=== PATIENT | female | born 1985 | race Caucasian/White ===

== ENCOUNTER 2018-12-21 10:23 | Emergency (ER) | payer BC, SELFPAY ==
[2018-12-21 10:27] VITALS: BP 133/72; PULSE 77; RESP 16; TEMP 36.7
[2018-12-21 10:43] LABS: Bilirubin Negative (Negative); Blood Moderate (Negative); Clarity Sl Cloudy (Clear); Glucose Negative (Negative); Ketones Negative (Negative); Leukocyte Esterase Moderate (Negative); Nitrite Negative (Negative); Urobilinogen 0.2 EU/dL (Up TO 0.2)
--- NOTE | 2018-12-21 10:43 | ED.GENADUL_ITS ---
Discharge Plan Disposition Patient Disposition: HOME Condition: Stable Discharge Details Chief Complaint: Urinary Clinical Impression: UTI (urinary tract infection), Third trimester ED Provider: Verena Arevalo Home Meds and New Rx's Prescriptions: Continued PNV cmb#95-ferrous fumarate-FA [] 28 mg iron- 800 mcg Tablet 1 tab PO DAILY RF: 0 Discharge Instructions Instructions: Urinary Tract Infection in (ED) Additional Instructions: Drink plenty of fluids and get plenty of rest. Call your [facility] on Sunday morning to schedule a follow-up appointment for reevaluation. Return to the emergency department with any worsening or new concerning symptoms such as fever, vomiting, worsening back pain or abdominal pain. Discharge Data Discharge Physician: Verena Arevalo Medical Decision Making 33-year-old female at 35 weeks of presenting with dysuria and cloudy urine since yesterday. Denies fever, vomiting, abdominal pain or any acute back pain. Patient appears nontoxic. Vitals within normal limits. Gravid abdomen. No significant tenderness. No CVA tenderness. Urinalysis notes moderate leukocyte esterase with moderate leukocyte esterase but with many epithelial cells and appears contaminated. In setting of with UTI symptoms, will treat with antibiotics. As there are limited options to her treatments for UTI and , will hold on obtaining another urinalysis for culture and she is agreeable with this plan. She is allergic to penicillin so we will hold on Keflex. She is nearing 36 weeks of and Macrobid not recommended due to risk of anemia. Will treat with 1 dose of 3 g fosfomycin p.o. Presentation does not appear consistent with pyelonephritis as she appears nontoxic without systemic symptoms. She is visiting from [place], she is advised to call her OB on Sunday for follow-up. She is recommended to return here with any worsening or new concerning symptoms. Medical Records Medical records reviewed: Yes I reviewed the patient's medical records. Lab Data Lab results reviewed: Yes I reviewed the patient's lab results. Labs: Laboratory Tests Range/Units 12/21/18 10:30 Urine Color (Yellow) Straw Urine Clarity (Clear) Sl cloudy Urine pH (5-8) 7.0 Ur Specific [place] (1.005-1.025) 1.010 Urine Protein (Negative) mg/dL Negative Urine Ketones (Negative) mg/dL Negative Urine Blood (Negative) Moderate H Urine Nitrite (Negative) Negative Urine Bilirubin (Negative) Negative Urine Urobilinogen (Up TO 0.2) EU/dL 0.2 Ur Leukocyte Esterase (Negative) Moderate H Urine RBC (0-2) Urine WBC (0-5) HPF Ur Epithelial Cells (Negative) HPF Many Urine Crystals Not Applicable Urine Bacteria Not Applicable Urine Mucus Not Applicable Ur Culture Indicated? No/sq. contamination Urine Glucose (Negative) mg/dL Negative HPI General Mode of arrival: ambulatory . Date/Time Provider Initiated Documentation: 12/21/18 10:43 . Limitations to Documentation: no limitations . Information obtained by: patient . HPI Narrative: Patient is a 33-year-old female at 35 weeks of presents with dysuria and cloudy urine since yesterday. Patient states she is visiting here for the weekend camping from [place]. She states she chronically has back pain with her and states this is no worse than usual. She denies fever, nausea, vomiting, abdominal pain, hematuri. Related Data Home Medications Medication Instructions Recorded Confirmed PNV cmb#95-ferrous fumarate-FA 1 tab PO DAILY 12/21/18 12/21/18 [] Allergies Allergy/AdvReac Type Severity Reaction Status Date / Time amoxicillin Allergy Other (See Unverified 12/21/18 10:30 Comment) Penicillins Allergy Unverified 12/21/18 10:30 General Stated Complaint: Urinary DAVIDA: 4 Review of Systems Review of Systems ROS Unobtainable: All systems reviewed & are unremarkable except as noted in HPI and below Constitutional Constitutional: Reports as per HPI, Denies chills and Denies fever(s) Eyes Eyes: Denies blurry vision ENT Ears, Nose, Mouth, and Throat: Denies dizziness, Denies sore throat and Denies throat swelling Cardiovascular Cardiovascular: Denies chest pain and Denies dyspnea Respiratory Respiratory: Denies cough and Denies dyspnea Gastrointestinal Gastrointestinal: Denies abdominal pain, Denies diarrhea and Denies vomiting Genitourinary Genitourinary: Denies hematuria and Reports dysuria Musculoskeletal Musculoskeletal: Denies back pain and Denies numbness Integumentary/Breasts Skin/Breast: Denies lesions and Denies rash Neurologic Neurologic: Denies dizziness, Denies focal weakness and Denies numbness Allergic/Immunologic Allergic/Immunologic: Denies throat swelling [facility] Medical History No significant past medical history (Acute) Surgical History History of bilateral mastectomy (Acute) Social History Smoking/Tobacco Use Status: Never Alcohol Intake: never Substance use type: does not use Do you feel safe at home: Yes Do you feel safe in your relationship?: Yes History History 2 1 Para 0 Hx # Term Pregnancies Multiple births Hx # Pregnancies Ectopic pregnancies AB induced Hx Number of Living Children AB spontaneous Exam Const General: cooperative, healthy appearing and no acute distress HENMT Head: normal to inspection Face and sinus: normal facial exam Eyes General: appearance normal, both eyes and all related structures EOM: EOM intact bilaterally Neck Neck: normal visual inspection and No submandibular swelling Lymphatic: no lymphadenopathy noted Chest Chest: normal inspection of the chest and no tenderness Resp Effort & Inspection: normal respiratory effort and able to speak in complete sentences Auscultation: clear to auscultation bilaterally Cardio Rate: regular rate Rhythm: regular rhythm GI Inspection: normal to inspection Palpation: soft, not firm, not rigid and nontender Auscultation: normal bowel sounds Back/Spine/Pelvis Back: no CVA tenderness Skin General skin exam: no rashes or lesions noted Neuro General: alert, awake and oriented x3 Cognition: normal cognition Speech: speech normal Motor: muscle tone normal throughout Sensory Exam: no sensory deficits noted Extrem General: normal to inspection, full ROM, normal capillary refill, no calf tenderness bilaterally and no edema Psych Appearance: grossly normal Mental Status: mental status grossly normal Speech and Movement: speech and movement normal Affect: normal affect Course Vital Signs Vital signs: Vital Signs Temperature 98.1 F 12/21/18 10:27 Pulse 77 12/21/18 10:27 Respiratory Rate 16 12/21/18 10:27 Blood Pressure 133/72 12/21/18 10:27 Temperature 98.1 F 12/21/18 10:27 Temperature Source Temporal Artery Scan 12/21/18 10:27 Pulse 77 12/21/18 10:27 Respiratory Rate 16 12/21/18 10:27 Respiratory Effort 12/21/18 10:27 Blood Pressure 133/72 12/21/18 10:27 Blood Pressure Position Supine 12/21/18 10:27 Oxygen Delivery Method Room Air 12/21/18 10:27 Oxygen Flow Rate 0 12/21/18 10:27 Pain Level 0 12/21/18 10:27
[2018-12-21 10:51] LABS: Epithelial Cells Many HPF (Negative)
[2018-12-21 10:52] LABS: C & S Indicated? No/Sq. Contamination
[2018-12-21] MEDS: Fosfomycin Tromethamine 3 GM PACKET PO (11:14)
== END 2018-12-21 11:19 | disposition home or self-care (01) ==
LOC: ER 11:23
PROVIDERS: Emergency Provider Physician Assistant
DX: O23.43 Unspecified infection of urinary tract in pregnancy, third trimester (principal); Z3A.35 35 weeks gestation of pregnancy
CPT/HCPCS: 99283; 81003; 81015; J3490